=== PATIENT | female | born 1975 | race Caucasian/White ===

== ENCOUNTER 2018-04-26 10:14 | Emergency (ER) | payer OTHER ==
[~2018-04-26] VITALS: Ht 152.4 cm; Wt 79.4 kg
--- NOTE | 2018-04-26 10:20 | NUR ---
bb self; abd pain with nausea and diarrhea x 2 days. recent travel to [place] accdg to the pt. nad vss rr even and unlabored. will cont to monitor
[2018-04-26] MEDS ORDERED: ONDANSETRON 4 MG TAB.RAPDIS ONE (10:35)
[2018-04-26] MEDS ORDERED: CIPROFLOXACIN HCL 500 MG TABLET ONE (10:35)
[2018-04-26] MEDS ORDERED: LOPERAMIDE HCL (2 MG CAP) 2 MG CAPSULE PO ONE ×2 (10:35→11:00)
[2018-04-26 10:45] VITALS: BP 128/84
--- NOTE | 2018-04-26 10:45 | NUR ---
Patient discharged to home in stable condition. Written and verbal after care instructions given. Patient verbalizes understanding of instruction.
[2018-04-26] MEDS ORDERED: ONDANSETRON 4 MG TAB.RAPDIS SL ONE (11:00)
[2018-04-26] MEDS ORDERED: CIPROFLOXACIN HCL 250 MG TABLET PO ONE (11:00)
== END 2018-04-26 10:50 | disposition home or self-care (01) ==
LOC: ER 10:16
DX: R19.7 Diarrhea, unspecified (principal); I10 Essential (primary) hypertension
CPT/HCPCS: 99284; A4606; Q0162; Z7610